=== PATIENT | female | born 1970 | race Caucasian/White ===

== ENCOUNTER 2021-07-25 07:45 | Emergency (ER) | payer OTHER ==
[~2021-07-25] VITALS: Ht 175.3 cm; Wt 137.4 kg
--- NOTE | 2021-07-25 07:57 | NUR ---
PATIENT AMBULATED TO BED 8.
--- NOTE | 2021-07-25 08:02 | NUR ---
50 y/o F BIB self from home c/o bilateral hand rash x 1 day. Patient A&Ox4, ambulatory, states she noticed the rash yesterday and states spread to her chest. Patient reports itchiness to rash site. No redness or swelling noted. Patient denies SOB, pain, new introduction to hygiene, food, medications. Patient states she recently began taking Entresto and Benazepril and PCP states no allergic reaction to meds. States applying lotion prior to arrival, denies any medications. No distress noted. Bed locked in lowest position, side rails x 1. PMH/Sx/Meds: HTN, enlarged heart, enlarged liver, HF, pulmonary HTN; atorvastatin, hydroxychloroquine, Lasix, metoprolol, spirolactone, entresto, benazepril NKA
--- NOTE | 2021-07-25 08:05 | NUR ---
Dr. Osborn is evaluating patient at bedside
[2021-07-25] MEDS ORDERED: diphenhydrAMINE 50 MG CAP PO ONE (08:15)
--- NOTE | 2021-07-25 08:41 | NUR ---
Patient discharged with v/s stable. Written and verbal after care instructions given and explained. Patient verbalized understanding. Ambulatory with steady gait. All questions addressed prior to discharge. Advised to follow up with PMD.
== END 2021-07-25 08:41 | disposition home or self-care (01) ==
LOC: MED 07:45
DX: R21 Rash and other nonspecific skin eruption (principal); L29.9 Pruritus, unspecified
CPT/HCPCS: 81002; 81025; 99283; Q0163